=== PATIENT | female | born 1980 | race Caucasian/White ===

== ENCOUNTER 2018-06-28 18:13 | Emergency (ER) | payer OTHER ==
[2018-06-28 18:18] VITALS: BP 121/65; TEMP 98.2; BMI 27.3
[2018-06-28] MEDS ORDERED: MORPHINE 4 MG/ML SYRINGE IM STA (18:28)
[2018-06-28] MEDS ORDERED: TORADOL IM STA (18:28)
[2018-06-28] MEDS ORDERED: DECADRON 4 MG/ML SDV IM STA (18:28)
[2018-06-28] MEDS ORDERED: PHENERGAN 25 MG/ML VIAL IM STA (18:29)
--- NOTE | 2018-06-28 18:33 | ED.PDOC ---
General ED Provider: Dr. MOLLY BOSE-ER Chief Complaint: Back Pain Stated Complaint: my lower back hurts and its going down my right leg Time Seen by Physician: 18:31 Mode of Arrival: Walk-In Information Source: Patient Exam Limitations: No limitations Nursing and Triage Documentation Reviewed and Agree: Yes Does patient meet sepsis criteria?: No System Inflammatory Response Syndrome: Not Applicable Sepsis Protocol: For patient's 13 years and over: Temp is 96.8 and below OR 101 and greater Pulse >90 BPM Resp >20/minute Acutely Altered Mental Status Are patient's symptoms suggestive of a new infection, such as: -Pneumonia -Skin, Soft Tissue -Endocarditis -UTI -Bone, Joint Infection -Implantable Device -Acute Abdominal Infection -Wound Infection -Meningitis -Blood Stream Catheter Infection -Unknown Musculoskeletal Complaint Exam - Back Pain Complaint/Exam Mechanism of Injury: Reports: No known trauma Onset/Duration: several hours Symptoms Are: Still present Timing: Constant Episodes Lasting: Hours Initial Severity: Mild Current Severity: Moderate Location: Reports: Discrete (lower back) Character: Reports: Dull, Aching, Spasmodic, Stiffness Aggravating: Reports: Movements, Lifting, Bending Alleviating: Reports: None Associated Signs and Symptoms: Reports: Numbness. Denies: Swelling, Redness, Bruising, Fever, Weakness Focal Tenderness: No Paraspinal Muscle Tenderness: No Paraspinal Muscle Spasm: No Scoliosis: No Lordosis: No Kyphosis: No SLR Test: Right Negative, Left Negative Hip Motion Testing Pain: Right Negative, Left Negative Focal Weakness: Present: None Focal Sensory Loss: Present: None Gait: Present: Abnormal Differential Diagnoses: Herniated Disk Review of Systems - Review Of Systems Constitutional: Reports: No symptoms Eyes: Reports: No symptoms Ears, Nose, Mouth, Throat: Reports: No symptoms Respiratory: Reports: No symptoms Cardiac: Reports: No symptoms GI: Reports: No symptoms : Reports: No symptoms Musculoskeletal: Reports: Back pain Skin: Reports: No symptoms Neurological: Reports: No symptoms Endocrine: Reports: No symptoms Hematologic/Lymphatic: Reports: No symptoms All Other Systems: Reviewed and Negative Past Medical History - Past Medical History Previously Healthy: Yes Endocrine: Reports: Unknown Cardiovascular: Reports: Unknown Respiratory: Reports: Unknown Hematological: Reports: Unknown Gastrointestinal: Reports: Unknown Genitourinary: Reports: Unknown Neuro/Psych: Reports: Unknown Musculoskeletal: Reports: Unknown Cancer: Reports: Unknown Last Menstrual Period: now - Surgical History General Surgical History: Reports: Unknown - Family History Family History: Reports: Unknown - Social History Smoking Status: Current every day smoker, Light tobacco smoker Hx Substance Use: No Alcohol Screening: None Physical Exam - Physical Exam Appearance: Well-appearing, No pain distress, Well-nourished Pain Distress: Moderate Eyes: PHYLLIS, EOMI, Conjunctiva clear ENT: Ears normal, Nose normal, Oropharynx normal Neck: Supple Respiratory: Airway patent, Breath sounds clear, Breath sounds equal, Respirations nonlabored Cardiovascular: RRR GI/: Soft, Nontender, No masses, Bowel sounds normal, No Organomegaly Musculoskeletal: Limited ROM Skin: Warm, Dry, Normal color Neurological: Sensation intact, Motor intact, Reflexes intact, Cranial nerves intact, Alert, Oriented Psychiatric: Affect appropriate, Mood appropriate Physician Notification - Case Discussed Physician Notified: dr ayala Time of Notification: 19:00 Critical Care Note - Critical Care Note Total Time (mins): 0 Course - Course Orders, Labs, Meds: Orders Category Date Time Status Dexamethasone 4 mg/ml Inj [Decadron 4 mg/ml Sdv] MEDS 06/28/18 18:28 Discontinued 4 mg IM ONCE STA Ketorolac Tromethamine [Toradol] MEDS 06/28/18 18:28 Discontinued 60 mg IM ONCE STA Morphine Sulfate [Morphine 4 mg/ml Syringe] MEDS 06/28/18 18:28 Discontinued 4 mg IM ONCE STA Promethazine HCl [Phenergan 25 mg/ml Vial] MEDS 06/28/18 18:29 Discontinued 25 mg IM ONCE STA CT LUMBAR SPINE W/O CONTRAST Stat RADS 06/28/18 18:28 Completed Medications Discontinued Medications Generic Name Dose Route Start Last Admin Trade Name Freq PRN Reason Stop Dose Admin Dexamethasone Sodium Phosphate 4 mg 06/28/18 18:28 06/28/18 18:51 Decadron 4 Mg/Ml Sdv IM 06/28/18 18:29 4 mg ONCE STA Administration Ketorolac Tromethamine 60 mg 06/28/18 18:28 06/28/18 18:50 Toradol IM 06/28/18 18:29 60 mg ONCE STA Administration Morphine Sulfate 4 mg 06/28/18 18:28 06/28/18 18:53 Morphine 4 Mg/Ml Syringe IM 06/28/18 18:29 4 mg ONCE STA Administration Promethazine HCl 25 mg 06/28/18 18:29 06/28/18 18:52 Phenergan 25 Mg/Ml Vial IM 06/28/18 18:30 25 mg ONCE STA Administration Vital Signs: Temp Pulse Resp BP Pulse Ox 06/28/18 18:13 98.2 F 95 H 20 121/65 98 Departure - Departure Time of Disposition: 18:46 Disposition: HOME SELF-CARE Discharge Problem: Sciatica Qualifiers: Laterality: right Qualified Code(s): M54.31 - Sciatica, right side Instructions: Sciatica (ED) Condition: Good Pt referred to PMD for follow-up: Yes IPMP verified?: No Additional Instructions: medrol dose pack---neurontin 100mg tid prn prin #30--f/u with pcp Allergies/Adverse Reactions: Allergies No Known Allergies Allergy (Unverified 06/28/18 18:19) Home Medications: Ambulatory Orders Levothyroxine Sodium 100 mcg PO DAILY 06/28/18 Disposition Discussed With: Patient
--- NOTE | 2018-06-28 19:11 | CT ---
EXAM: CT lumbar spine without contrast HISTORY: Low back pain with radiculopathy COMPARISON: None TECHNIQUE: CT lumbar spine performed without intravenous contrast. Coronal and sagittal reformatted images obtained. FINDINGS: Vertebral bodies normal height. No fracture. No subluxation. Intervertebral disc spaces maintained. Sacroiliac joints intact. Central canal and neural foramen grossly patent. 3 mm nonob structing right renal calculus. Aorta normal in caliber. Small cystic change right lung base. IMPRESSION: 1. Normal examination lumbar spine. 2. Right nephrolithiasis. No hydronephrosis.
== END 2018-06-28 19:59 | disposition home or self-care (01) ==
LOC: ED 18:13
DX: M54.31 Sciatica, right side (principal); F17.210 Nicotine dependence, cigarettes, uncomplicated
CPT/HCPCS: 96372; 99283

== ENCOUNTER 2018-07-18 21:38 | Emergency (ER) ==
[2018-07-18 21:57] VITALS: BMI 27.4
[2018-07-18] MEDS ORDERED: LACTATED RINGERS 1,000 ML IV STA (22:09)
--- NOTE | 2018-07-18 22:29 | ED.PDOC ---
General ED Provider: Dr. ELLI IRELAND Chief Complaint: Headache Stated Complaint: Intermittent headache all day. Rates pain 9/10. Says is in right frontal lobe and shoots pain across head. Nausea. No vomiting. Light/ sound sensitive. Has had fever/chills today. Dry cough. Time Seen by Physician: 22:00 Mode of Arrival: Walk-In Information Source: Patient Exam Limitations: No limitations Primary Care Provider: RASHMI VÁZQUEZ Nursing and Triage Documentation Reviewed and Agree: Yes Does patient meet sepsis criteria?: Yes If yes, has appropriate treatment been initiated?: Yes System Inflammatory Response Syndrome: Not Applicable Sepsis Protocol: For patient's 13 years and over: Temp is 96.8 and below OR 101 and greater Pulse >90 BPM Resp >20/minute Acutely Altered Mental Status Are patient's symptoms suggestive of a new infection, such as: -Pneumonia -Skin, Soft Tissue -Endocarditis -UTI -Bone, Joint Infection -Implantable Device -Acute Abdominal Infection -Wound Infection -Meningitis -Blood Stream Catheter Infection -Unknown Review of Systems - Review Of Systems Constitutional: Reports: Fever Eyes: Reports: No symptoms Ears, Nose, Mouth, Throat: Reports: No symptoms Respiratory: Reports: Cough (non productive ) Cardiac: Reports: No symptoms GI: Reports: Nausea, Poor appetite. Denies: Vomiting : Reports: No symptoms Musculoskeletal: Denies: Neck pain Skin: Reports: No symptoms Neurological: Reports: Headache Endocrine: Reports: No symptoms Hematologic/Lymphatic: Reports: No symptoms All Other Systems: Reviewed and Negative Past Medical History - Past Medical History Previously Healthy: Yes Endocrine: Reports: Hypothyroid Cardiovascular: Reports: None Respiratory: Reports: None Hematological: Reports: None Gastrointestinal: Reports: None Genitourinary: Reports: None Neuro/Psych: Reports: Migraine Musculoskeletal: Reports: None Cancer: Reports: None Last Menstrual Period: 06/30/18 Other Pertinent Past Medical History: vitamin D deficiency - Surgical History General Surgical History: Reports: Tubal ligation (2008) - Family History Family History: Reports: Unknown - Social History Smoking Status: Current every day smoker, Light tobacco smoker Hx Substance Use: No Alcohol Screening: None - Immunizations Tetanus Shot up to Date: Yes Physical Exam - Physical Exam Appearance: Ill-appearing Ill-appearing: Mild Pain Distress: Severe Eyes: PHYLLIS, EOMI, Conjunctiva clear ENT: Ears normal, Nose normal, Oropharynx normal Respiratory: Airway patent, Breath sounds diminished, Respirations nonlabored Cardiovascular: Pulses normal, No rub, No murmur, Tachycardia GI/: Soft, Nontender, No masses, Bowel sounds normal, No Organomegaly Musculoskeletal: Normal strength, ROM intact, No edema, No calf tenderness Skin: Warm, Dry, Normal color Neurological: Alert, Oriented Psychiatric: Anxious Interpretation - Radiology Interpretation Radiology Interpretation By: Radiologist Radiology Results: Negative Exam Interpreted: CT Scan Re-Evaluation - Re-Evaluation Time of Re-Evaluation: 01:25 Status: Improved Vital Signs Stable: Yes Pain Level: much improved. Critical Care Note - Critical Care Note Total Time (mins): 30 Course - Course Hematology/Chemistry: 07/18/18 22:41 07/18/18 22:41 Orders, Labs, Meds: Lab Review 07/18/18 07/18/18 07/18/18 22:41 22:41 22:41 WBC 9.59 RBC 4.26 Hgb 11.0 L Hct 33.1 L MCV 77.7 L MCH 25.8 L MCHC 33.2 RDW Coeff of Andrea 15.6 H Plt Count 196 Immature Gran % (Auto) 0.5 Neut % (Auto) 85.9 Lymph % (Auto) 8.6 L Shoshone % (Auto) 4.8 Eos % (Auto) 0.2 Baso % (Auto) 0.0 Immature Gran # (Auto) 0.1 Neut # (Auto) 8.2 H Lymph # (Auto) 0.8 Shoshone # (Auto) 0.5 Eos # (Auto) 0.0 Baso # (Auto) 0.0 Sodium 136.3 L Potassium 3.21 L Chloride 103.4 Carbon Dioxide 24.7 Anion Gap 11.41 BUN 5.6 L Creatinine 0.67 Estimated GFR (MDRD) 98.00 BUN/Creatinine Ratio 8.35 Glucose 91.5 Lactic Acid Calcium 8.87 Total Bilirubin 0.13 L AST 18.6 ALT 12.0 Alkaline Phosphatase 88.7 Total Protein 7.07 Albumin 3.90 Globulin 3.17 Albumin/Globulin Ratio 1.23 Procalcitonin 0.08 07/18/18 22:41 WBC RBC Hgb Hct MCV MCH MCHC RDW Coeff of Andrea Plt Count Immature Gran % (Auto) Neut % (Auto) Lymph % (Auto) Shoshone % (Auto) Eos % (Auto) Baso % (Auto) Immature Gran # (Auto) Neut # (Auto) Lymph # (Auto) Shoshone # (Auto) Eos # (Auto) Baso # (Auto) Sodium Potassium Chloride Carbon Dioxide Anion Gap BUN Creatinine Estimated GFR (MDRD) BUN/Creatinine Ratio Glucose Lactic Acid 0.56 L Calcium Total Bilirubin AST ALT Alkaline Phosphatase Total Protein Albumin Globulin Albumin/Globulin Ratio Procalcitonin Orders Category Date Time Status ED APPLY O2 .ONCE EMERGENCY 07/18/18 22:09 Active ED MATRIX REPAIRER APPLIED .ONCE EMERGENCY 07/18/18 22:09 Active ED IV/MEDIPORT/POWERPORT .ONCE EMERGENCY 07/18/18 22:09 Active ED VITAL SIGNS Q1HR EMERGENCY 07/18/18 22:09 Active BLOOD CULTURE (ED ONLY) Stat LAB 07/18/18 22:41 Results CBC W/ AUTO DIFF Stat LAB 07/18/18 22:41 Completed COMPREHENSIVE METABOLIC PANEL Stat LAB 07/18/18 22:41 Completed LACTIC ACID Stat LAB 07/18/18 22:41 Completed PROCALCITONIN Stat LAB 07/18/18 22:41 Completed 0.9 % Sodium Chloride [Saline Flush] MEDS 07/18/18 22:09 Discontinued 1 syr IVF PRN PRN Acetaminophen [Tylenol] MEDS 07/18/18 23:50 Discontinued 1,000 mg .ROUTE .STK-MED ONE Acetaminophen [Tylenol] MEDS 07/18/18 23:49 Discontinued 1,000 mg PO ONCE STA Ceftriaxone Sodium [Rocephin] MEDS 07/19/18 00:55 Discontinued 1 gm .ROUTE .STK-MED ONE Ceftriaxone Sodium [Rocephin] 1 gm MEDS 07/19/18 00:50 Discontinued 0.9 % Sodium Chloride [Sodium Chloride] 50 ml IV ONCE Ketorolac Tromethamine [Toradol] MEDS 07/18/18 22:38 Discontinued 30 mg IVP ONCE STA Ondansetron HCl/Pf [Zofran 4 mg/2 ml] MEDS 07/18/18 22:38 Discontinued 4 mg IVP ONCE STA Potassium Chloride [K-Dur] MEDS 07/19/18 00:49 Discontinued 20 meq PO ONCE STA Ringers Lactated Solution [Lactated Ringers] 1,000 ml MEDS 07/18/18 22:09 Discontinued IV 100 mls/hr Sumatriptan Succinate [Imitrex] MEDS 07/18/18 22:38 Discontinued 6 mg SUBCUT ONCE STA CHEST, 2 VIEWS PA & LAT Stat RADS 07/18/18 22:[address] HEAD W/O CONTRAST Stat RADS 07/18/18 22:10 Completed Medications Discontinued Medications Generic Name Dose Route Start Last Admin Trade Name Freq PRN Reason Stop Dose Admin Acetaminophen 1,000 mg 07/18/18 23:49 07/18/18 23:52 Tylenol PO 07/18/18 23:50 1,000 mg ONCE STA Administration Lactated Ringer's 1,000 mls @ 100 mls/hr 07/18/18 22:09 07/18/18 22:43 Lactated Ringers IV 07/19/18 08:08 100 mls/hr .Q10H STA Administration Ceftriaxone Sodium 1 gm/ 50 mls @ 75 mls/hr 07/19/18 00:50 07/19/18 00:57 Sodium Chloride IV 07/19/18 01:29 75 mls/hr ONCE STA Administration Ketorolac Tromethamine 30 mg 07/18/18 22:38 07/18/18 22:54 Toradol IVP 07/18/18 22:39 30 mg ONCE STA Administration Ondansetron HCl 4 mg 07/18/18 22:38 07/18/18 22:55 Zofran 4 Mg/2 Ml IVP 07/18/18 22:39 4 mg ONCE STA Administration Potassium Chloride 20 meq 07/19/18 00:49 07/19/18 00:58 K-Dur PO 07/19/18 00:50 20 meq ONCE STA Administration Sodium Chloride 1 syr 07/18/18 22:09 Saline Flush IVF PRN PRN To flush IV Sumatriptan Succinate 6 mg 07/18/18 22:38 07/18/18 22:54 Imitrex SUBCUT 07/18/18 22:39 6 mg ONCE STA Administration Vital Signs: Temp Pulse Resp BP Pulse Ox 07/19/18 00:21 99.5 F 104 H 14 112/70 100 07/18/18 23:43 101.2 F H 105 H 22 99/66 98 07/18/18 21:47 101.9 F H 129 H 20 117/73 99 Departure - Departure Time of Disposition: 01:30 Disposition: HOME SELF-CARE Discharge Problem: Headache Acute bronchitis Qualifiers: Bronchitis organism: other organism Qualified Code(s): J20.8 - Acute bronchitis due to other specified organisms Instructions: Migraine Headache (ED) Condition: Stable Pt referred to PMD for follow-up: Yes IPMP verified?: No Additional Instructions: take Medications as prescribed Follow up with PCP in 3 days Prescriptions: Amoxicillin/Potassium Clav [Augmentin 875-125 mg Tab] 1 tab PO Q12HR #20 tablet Azithromycin [Zithromax] 250 mg PO DIRECTED #6 tablet Butalb/Acetaminophen/Caffeine [Fioricet] 1 each PO TID PRN #20 tablet PRN Reason: headache Allergies/Adverse Reactions: Allergies No Known Allergies Allergy (Verified 07/18/18 21:57) Home Medications: Ambulatory Orders Levothyroxine Sodium 100 mcg PO DAILY 06/28/18 Cholecalciferol (Vitamin D3) [Vitamin D3] 5,000 unit PO DIRECTED 07/13/18 Sertraline HCl 50 mg PO DAILY 07/13/18 Cyclobenzaprine HCl [Flexeril] 10 mg PO DAILY PRN 07/18/18 Amoxicillin/Potassium Clav [Augmentin 875-125 mg Tab] 1 tab PO Q12HR #20 tablet 07/19/18 Azithromycin [Zithromax] 250 mg PO DIRECTED #6 tablet 07/19/18 Butalb/Acetaminophen/Caffeine [Fioricet] 1 each PO TID PRN #20 tablet 07/19/18 Disposition Discussed With: Patient
[2018-07-18] MEDS ORDERED: IMITREX SUBCUT STA (22:38)
[2018-07-18] MEDS ORDERED: TORADOL IVP STA (22:38)
[2018-07-18] MEDS ORDERED: ZOFRAN 4 MG/2 ML IVP STA (22:38)
--- NOTE | 2018-07-18 22:54 | CT ---
EXAM: CT head without contrast 08/17/2018. Sagittal and coronal reformatted images obtained HISTORY: Headache COMPARISON: None. FINDINGS: There is no evidence of intracranial hemorrhage. The midline is maintained. There is no h ydrocephalus. No cerebellar tonsillar ectopia. Evaluation of the calvarium shows no fracture. Th e mastoid air cells are normally pneumatized. IMPRESSION: No acute intracranial abnormality.
[2018-07-18] MEDS ORDERED: TYLENOL PO STA (23:49)
[2018-07-18] MEDS ORDERED: TYLENOL ONE (23:50)
[2018-07-19 00:22] VITALS: BP 112/70; TEMP 99.5
[2018-07-19] MEDS ORDERED: K-DUR PO STA (00:49)
[2018-07-19] MEDS ORDERED: ROCEPHIN 1 GM in SODIUM CHLORIDE 50 ML IV STA (00:50)
[2018-07-19] MEDS ORDERED: ROCEPHIN ONE (00:55)
--- NOTE | 2018-07-19 01:02 | DI ---
EXAM: Two-view chest HISTORY: Cough fever COMPARISON: Two-view chest 07/01/2015 FINDINGS: Cardiomediastinal silhouette is normal.. There is no evidence of infiltrate or effusion. No osseous abnormalities are identified. IMPRESSION: No evidence of active pulmonary disease
== END 2018-07-19 01:45 | disposition home or self-care (01) ==
LOC: ED 21:38
DX: J20.9 Acute bronchitis, unspecified (principal); R51 Headache; F17.210 Nicotine dependence, cigarettes, uncomplicated
CPT/HCPCS: 36415; 80053; 83605; 84145; 85025; 87040; 96361; 96365; 96372; 96375; 99284